=== PATIENT | female | born 1975 | race African-American/Black ===

== ENCOUNTER 2017-09-17 20:37 | Emergency (ER) | payer OTHER ==
[~2017-09-17] VITALS: Ht 157.5 cm; Wt 94.8 kg
[~2017-09-17 20:37] MED LIST: AMOXICILLIN 50500 M1 PO; CIPRO HC OTIC S10 ML OTIC; IBUPROFEN 600600 M1 PO; NOHOMEMEDICATIONS; NORCO 5-325 TA1 EACH PO; PRENATAL VITAM1 EAC6 PO; PREVACID; SIMETHICON CHEW80 M1 PO; TERAZOL 320 GM VAG; ZOFRAN ODT4 MG PO
[2017-09-17 20:45] VITALS: BP 128/87
[2017-09-17] MEDS ORDERED: IBUPROFEN 400400 M2 PO (21:14)
== END 2017-09-17 21:30 | disposition home or self-care (01) ==
LOC: ER 20:37
DX: S09.90XA Unspecified injury of head, initial encounter (principal); K21.9 Gastro-esophageal reflux disease without esophagitis; V89.2XXA Person injured in unspecified motor-vehicle accident, traffic, initial encounter; Y92.89 Other specified places as the place of occurrence of the external cause; Y93.89 Activity, other specified; Y99.8 Other external cause status